=== PATIENT | female | born 1990 ===

== ENCOUNTER 2018-12-05 01:19 | Inpatient (IN) | payer MEDICAID ==
[2018-12-05 01:19] VITALS: BMI 20.9
--- NOTE | 2018-12-05 02:18 | ED PDOC ---
HPI: Psych/Substance Abuse Time Seen by Provider: 12/05/18 01:25 Chief Complaint (Nursing): Psychiatric Evaluation Chief Complaint (Provider): Depression History Per: Patient History/Exam Limitations: no limitations Suicide/Self Injury Attempted (Context): Cut Wrists Associated Symptoms: Depression, Suicidal Thoughts Additional Complaint(s): 28 y/o female presents to the ED with suicidal gesture. Patient used a kitchen knife and cut her wrists. Patient has a known history of 3 prior attempts of suicide. When provider asks if patient has a history of depression, patient denied. However, she does admit that 4 years ago she was admitted to the psychiatric unit 10 months after she gave . Patient reports she does currently see a psychiatrist, receive psychiatric care or take any medications. Past Medical History Reviewed: Historical Data, Nursing Documentation, Vital Signs Vital Signs: Last Vital Signs Temp 98.6 F 12/05/18 01:21 Pulse 98 H 12/05/18 01:21 Resp 16 12/05/18 01:21 BP 140/82 12/05/18 01:21 Pulse Ox 100 12/05/18 01:21 - Medical History PMH: Depression - Family History Family History: States: Unknown Family Hx - Social History Current smoker - smoking cessation education provided: No Alcohol: None Drugs: Denies - Immunization History Hx Tetanus Toxoid Vaccination: No (Last tetanus 4 years ago) Hx Influenza Vaccination: No Hx Pneumococcal Vaccination: No - Home Medications Home Medications: Ambulatory Orders Medication Instructions Recorded Escitalopram [Lexapro] 10 mg PO HS 30 Days #30 tab 12/09/18 - Allergies Allergies/Adverse Reactions: Allergies Allergy/AdvReac Type Severity Reaction Status Date / Time No Known Allergies Allergy Verified 12/28/17 09:35 Review of Systems ROS Statement: Except As Marked, All Systems Reviewed And Found Negative Psych: Positive for: Depression, Suicidal ideation Physical Exam - Reviewed Nursing Documentation Reviewed: Yes Vital Signs Reviewed: Yes - Physical Exam Appears: Positive for: Well, Non-toxic, No Acute Distress Head Exam: Positive for: ATRAUMATIC, NORMAL INSPECTION, NORMOCEPHALIC Skin: Positive for: Normal Color, Warm, DRY Eye Exam: Positive for: EOMI, Normal appearance, PERRL ENT: Positive for: Normal ENT Inspection Neck: Positive for: Normal, Painless ROM Cardiovascular/Chest: Positive for: Regular Rate, Rhythm. Negative for: Murmur Respiratory: Positive for: Normal Breath Sounds. Negative for: Respiratory Distress Gastrointestinal/Abdominal: Positive for: Normal Exam, Soft. Negative for: Tenderness Back: Positive for: Normal Inspection Extremity: Positive for: Normal ROM, Other (superficial abrasions to both wrists) Neurological/Psych: Positive for: Awake, Alert, Normal Tone - Laboratory Results Result Diagrams: 12/06/18 05:25 12/06/18 05:25 - ECG O2 Sat by Pulse Oximetry: 100 (RA) Pulse Ox Interpretation: Normal Medical Decision Making Medical Decision Making: Time: Impression: 28 y/o with self-injurious behavior Initial Plan: 1:1 Observation Crisis evaluation 05:26 Patient was evaluated by crisis and will be admitted. Patient is medically stable for psychiatric admission. Diagnosis is depression by Dr. Wiley. Scribe Attestation: Documented by Adriel Delgado, acting as a scribe Regla Rojas MD. Provider Scribe Attestation: All medical record entries made by the Scribe were at my direction and personally dictated by me. I have reviewed the chart and agree that the record accurately reflects my personal performance of the history, physical exam, medical decision making, and the department course for this patient. I have also personally directed, reviewed, and agree with the discharge instructions and disposition. Disposition - Clinical Impression Clinical Impression: Depression - Patient ED Disposition Is Patient to be Admitted: Yes - Disposition Disposition Time: 05:26 Condition: FAIR
[2018-12-05 03:21] LABS: BASO % 0.6 % (0.0-2.0); EOS # 0.1 K/uL (0.0-0.7); EOS % 0.9 % (0.0-4.0); HEMOGLOBIN 12.3 g/dL (12.0-16.0); LYMPH # 1.6 K/uL (1.0-4.3); LYMPH % 23.2 % (20.0-40.0); MEAN CELL VOLUME 95.9 fl (81.0-99.0); MEAN CORPUSCULAR HEMOGLOBIN 32.1 pg (27.0-31.0); MEAN CORPUSCULAR HGB CONC 33.4 g/dL (33.0-37.0); MEAN PLATELET VOLUME 10.6 fl (7.2-11.7); MONO # 0.5 K/uL (0.0-0.8); MONO % 7.2 % (0.0-10.0); NEUT # 4.7 K/uL (1.8-7.0); NEUT % 68.1 % (50.0-75.0); NRBC % 0.1 % (0.0-0.0); RBC 3.82 Mil/uL (3.80-5.20); RED CELL DISTRIBUTION WIDTH 12.4 % (11.5-14.5); WHITE BLOOD COUNT 6.9 K/uL (4.8-10.8)
[2018-12-05 03:31] LABS: ALBUMIN 3.7 g/dL (3.5-5.0); ALT/SGPT 20 U/L (9-52); AST/SGOT 22 U/L (14-36); BLOOD UREA NITROGEN 17 mg/dl (7-17); CALCIUM 8.9 mg/dL (8.4-10.2); GFR NON-AFRICAN AMERICAN > 60
[2018-12-05 03:49] LABS: SQUAMOUS EPITHIAL 1 /hpf (0-5); URINE BACTERIA RARE (<OCC); URINE BILIRUBIN NEGATIVE (NEGATIVE); URINE BLOOD LARGE (NEGATIVE); URINE CLARITY CLEAR (Clear); URINE COLOR STRAW (YELLOW); URINE GLUCOSE (UA) NEG (NEGATIVE); URINE LEUKOCYTE ESTERASE NEG Leu/uL (Negative); URINE PROTEIN NEGATIVE (NEGATIVE); URINE UROBILINOGEN 0.2-1.0 mg/dL (0.2-1.0)
[2018-12-05 03:58] LABS: BARBITURATES, UR NEGATIVE (NEGATIVE); BENZODIAZEPINES, UR NEGATIVE (NEGATIVE); OPIATES, UR NEGATIVE (NEGATIVE); PHENCYCLIDINE, UR NEGATIVE (NEGATIVE)
[2018-12-05] MEDS ORDERED: Magnesium Hydroxide Susp 30 ml UD PO PRN (06:21)
[2018-12-05] MEDS ORDERED: DiphenhydrAMINE 50 mg/ml Inj IM PRN (06:21)
[2018-12-05] MEDS ORDERED: Alum-Mag Hydrox-Simethicone Susp (30 mL) PO PRN (06:21)
--- NOTE | 2018-12-05 06:53 | PCM.BM ---
<ZacariasTeri Araseli - Last Filed: 12/05/18 06:51> Treatment Plan Problems - Problems identified on initial assessmt Self Harm Date Initiated: 12/05/18 Time Initiated: 06:51 Assessment reference: NA Status: Active Hopelessness/Helplessness Date Initiated: 12/05/18 Time Initiated: 06:51 Assessment reference: NA Status: Active Altered Sleep Patterns Date Initiated: 12/05/18 Time Initiated: 06:52 Assessment reference: NA Status: Active Treatment assets and liabiliti Patient Assests: cooperative, self-reliant, ADL independent, physically healthy, good support system Patient Liabilities: financial problems, relationship conflicts - Milieu Protocol Maintain good personal hygiene: daily Encourage regular showers, every shift Remind patient to perform daily oral care Conduct patient checks and document Observation sheet: Q15 minutes Maintain personal safety: every shift Educate patient to report safety concerns to staff, every shift Monitor environment for contraband/sharps Medication safety: Monitor for expected outcome, potential side effects: every shift, Assess barriers to learning: every shift, Assess readiness for medication education: every shift <Donta Lugo - Last Filed: 12/07/18 13:34> - Diagnosis (1) Major depression Status: Acute Interventions: start antidepressant , psychotherapy 12/07/18 13:34 <Negar Rogers - Last Filed: 12/08/18 14:25> Treatment assets and liabiliti Patient Assests: adapts well, cooperative, educated (Pt. 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 Pt. identifies daughter as primary protective factor. Pt. reports daily communication with mother ([place]). Pt. reports majority of family remains in [place], making staying in contact difficult. Pt. identified wanting to improve communication in order to feel better supported as a goal upon d/c. ), negotiates basic needs, cognitively intact Patient Liabilities: financial problems (Pt. currently financially dependent on boyfriend, adding to discord.), relationship conflicts (Pt. reports long hx of discord with boyfriend secondary to poor communication and lack of time spent at home. Pt. explains, the relationship has been over for a long time. ) Family Contact Family involvement: Family/SO is involved Family contact: Family has been contacted by patient, Patient declines to allow family contact at present - Outside Agency Agency 1 Care involvment: Information-sharing, Other Agency contact name: Robyn) Agency contact number: ([phone]) - Goals for Treatment Patient goals for treatment: Patient to continue stabilization on 3NP through medication management and group/supportive therapy to address sxs of depression (feelings of sadness, sleep disturbances, poor appetite) and eliminate SI. Patient to be encouraged to attend groups regularly to promote self-awareness, impulse control, and improve insight, compliance, coping skills and self-esteem. Patient to be provided with referral for appropriate level of aftercare to reduce risk of future hospitalizations and ensure safety in the community. Pt. identified prioritizing self-care by adhering with tx as primary tx goal in order to more effectively care for daughter and feel secure enough to end relationships. Discharge/Continuing Care - Education Needs Education Needs: Patient Medication, Patient Diagnosis/Disease Process, Patient Coping Skills, Patient Community resources, Patient Aftercare Safety Plan - Discharge Discharge Criteria: Tolerates medication w/o severe side effects, Free of Suicidal thoughts, Normal sleep pattern, Ability to care for self Discharge to:: Home, With Family - Treatment Team Participation Patient/Family/SO Statement: 12/08/18 14:23 Pt attended tx team on 12/07 to discuss progress on 3NP and tx goals. Affect brighter than upon admission. Pt. reported significant improvement in sxs of depression as exhibited by increase in energy/motivation and improved sleep/appetite. Pt. reported feeling more positive about the future. Pt. presented as future-oriented as exhibited by plans to start school on 12/13 to better financial situation and feel independent/secure enough to end current relationship if need be. Pt. expressed motivation for tx and agreed to referral to [facility] for OPS. Discussed with Family/SO: No Was Patient/Family/SO present at Treatment Team Meeting: Yes
[2018-12-05] MEDS ORDERED: Pneumococcal 23-Valent Vaccine IM ONE (07:00)
--- NOTE | 2018-12-05 07:49 | CARD ---
APPROVED REPORT Date of service: 12/05/2018 EKG Measurement Heart [id number] <Conclusion> Normal sinus rhythm Normal ECG
[2018-12-05 09:19] LABS: HDL CHOLESTEROL 56 MG/DL (30-70)
[2018-12-05 09:32] LABS: LDL CHOLESTEROL 76 mg/dL (0-129)
[2018-12-05 09:38] VITALS: RESP 18
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
[2018-12-06 06:06] LABS: BASO % 0.8 % (0.0-2.0); EOS # 0.1 K/uL (0.0-0.7); LYMPH # 2.1 K/uL (1.0-4.3); LYMPH % 37.3 % (20.0-40.0); MEAN CELL VOLUME 95.9 fl (81.0-99.0); MEAN CORPUSCULAR HEMOGLOBIN 31.8 pg (27.0-31.0); MEAN CORPUSCULAR HGB CONC 33.2 g/dL (33.0-37.0); MEAN PLATELET VOLUME 10.4 fl (7.2-11.7); MONO # 0.5 K/uL (0.0-0.8); MONO % 8.1 % (0.0-10.0); NEUT # 2.9 K/uL (1.8-7.0); NEUT % 51.8 % (50.0-75.0); NRBC % 0.1 % (0.0-0.0); RBC 4.08 Mil/uL (3.80-5.20); RED CELL DISTRIBUTION WIDTH 12.7 % (11.5-14.5); WHITE BLOOD COUNT 5.6 K/uL (4.8-10.8)
[2018-12-06 06:26] LABS: ALB/GLOB RATIO 1.1 (1.0-2.1); ALT/SGPT 22 U/L (9-52); AST/SGOT 21 U/L (14-36); BLOOD UREA NITROGEN 15 mg/dl (7-17); CALCIUM 8.9 mg/dL (8.4-10.2); GFR NON-AFRICAN AMERICAN > 60
--- NOTE | 2018-12-06 13:36 | PCM.PYCHPN ---
Psychiatric Progress Note - Psychiatric Progress Note Patient seen today, length of contact: pt evaluated discussed with team chart reviewed Patient Chief Complaint: I want to take care of my child Problems Identified/Issues Discussed: pt on evaluation, cooperative, partial eye contact , presenting with depressed mood and constricted affect, reporting feeling overwhelmed at home with lack of social support, discussed with patient importance of therapy as treatment plan, for developing healthy coping skills with life stress, also discussed the possible therapeutic effect of lexapro, pt in agreement to start medication, denied any current active thoughts of self harm on the unit, denied perceptual disturbances, pt encouraged to attend groups and to participate in treatment Medical Problems: hx of one hospitalization three years ago in [place] for similar suicide attempt DSM 5 Symptoms Update: major depression recurrent severe without psychotic features Medication Change: Yes (lexapro 10mg qhs ) Medical Record Reviewed: Yes Mental Status Examination - Cognitive Function Orientation: Person, Place, Situation Attention: WNL Concentration: WNL Association: WNL Decription of patient's judgement and insights: partial insight fair judgment - Mood Mood: Depressed, Anxious - Affect Affect: Constricted - Speech Speech: Soft - Formal Thought Process Formal Thought Process: Circumstantial Psychotic Thoughts and Behaviors: pt denied perceptual disturbances non elicited - Suicidal Ideation Suicidal Ideation: No - Homicidal Ideation Homicidal Ideation: No Goal/Treatment Plan - Goal/Treatment Plan Need for Continued Stay: Remain at risks for inpatient hospitalization, Severe depression anxiety, Discharge may exacerbated symptoms Progress Toward Problem(s) and Goals/Treatment Plan: lexapro 10mg qhs, CBT group and supportive therapy
--- NOTE | 2018-12-07 13:41 | PCM.PYCHPN ---
Psychiatric Progress Note - Psychiatric Progress Note Patient seen today, length of contact: pt evaluated discussed with team chart reviewed Patient Chief Complaint: I want to find a future for myself Problems Identified/Issues Discussed: pt evaluated with treatment team,improved eye contact and speech more productive, reported improved sleep, no side effects of lexapro, discussed with pt importance of starting therapy on discharge for learning better coping sk ills, pt able to verbalize her future goals and motivated to continue with treatment she denied any current active thoughts of self harm, denied perceptual disturbances Medical Problems: hx of one hospitalization three years ago in [place] for similar suicide attempt DSM 5 Symptoms Update: major depression recurrent severe without psychotic features Medication Change: No Medical Record Reviewed: Yes Mental Status Examination - Cognitive Function Orientation: Person, Place, Situation Attention: WNL Concentration: WNL Association: WNL Decription of patient's judgement and insights: partial insight fair judgment - Mood Mood: Depressed - Affect Affect: Constricted - Speech Speech: Soft - Formal Thought Process Formal Thought Process: Circumstantial Psychotic Thoughts and Behaviors: pt denied perceptual disturbances non elicited - Suicidal Ideation Suicidal Ideation: No - Homicidal Ideation Homicidal Ideation: No Goal/Treatment Plan - Goal/Treatment Plan Need for Continued Stay: Remain at risks for inpatient hospitalization, Severe depression anxiety, Discharge may exacerbated symptoms Progress Toward Problem(s) and Goals/Treatment Plan: lexapro 10mg qhs, CBT group and supportive therapy referral to outpatient therapy on discharge
--- NOTE | 2018-12-08 14:10 | PCM.PYCHPN ---
Psychiatric Progress Note - Psychiatric Progress Note Patient seen today, length of contact: pt evaluated discussed with team chart reviewed Patient Chief Complaint: I am feeling better Problems Identified/Issues Discussed: pt evaluated , reported better mood, presenting with brighter affect, improved sleep, no reported side effects of medications, attending groups, able to verbalize healthy coping skills with stress she denied any current active thoughts of self harm, denied perceptual disturbances Medical Problems: hx of one hospitalization three years ago in [place] for similar suicide attempt DSM 5 Symptoms Update: major depression recurrent Medication Change: No Medical Record Reviewed: Yes Mental Status Examination - Cognitive Function Orientation: Person, Place, Situation Attention: WNL Concentration: WNL Association: WNL Decription of patient's judgement and insights: partial insight fair judgment - Mood Mood: Depressed, Anxious - Affect Affect: Constricted - Speech Speech: Soft - Formal Thought Process Formal Thought Process: Circumstantial Psychotic Thoughts and Behaviors: pt denied perceptual disturbances non elicited - Suicidal Ideation Suicidal Ideation: No - Homicidal Ideation Homicidal Ideation: No Goal/Treatment Plan - Goal/Treatment Plan Need for Continued Stay: Remain at risks for inpatient hospitalization, Severe depression anxiety, Discharge may exacerbated symptoms Progress Toward Problem(s) and Goals/Treatment Plan: lexapro 10mg qhs, CBT group and supportive therapy referral to outpatient therapy on discharge
[2018-12-08 14:18] VITALS: BP 116/62; PULSE 71; TEMP 97.8
--- NOTE | 2018-12-09 09:08 | PCM.PYCHDC ---
Mental Status Examination - Mental Status Examination Orientation: Person, Place, Situation Memory: Intact Mood: Neutral Affect: Broad Speech: Appropriate Attention: WNL Concentration: WNL Association: WNL Fund of Knowledge: WNL Formal Thought Process: No Impairment Description of patient's judgement and insight: partial insight fair judgment Psychotic Thoughts and Behaviors: pt denied perceptual disturbances non elicited Suicidal Ideation: No Current Homicidal Ideation?: No Discharge Summary - Discharge Note Reason for Hospitalization: pt is a 28 ys old female with previous diagnosis of depression currently not in treatment brought to ER after suicidal attempt by cutting both wrists superficially pt reported she has been increasingly depressed for past few months as she has not been working which resulted in conflict with her , feeling overwhelmed by house work,no social support and having financial difficulties pt reported poor sleep with early insomnia, poor appetite with unspecified weight loss, low energy poor motivation episodes of crying , on day of evaluation she had fight with resulting in suicidal thoughts with attempt to cut her wrist on unit continues to report passive suicidal ideation without active plan on the unit, feeling hopeless, denied perceptual disturbances, denied substance use Consultations:: List each consultation separately and include: 1. Reason for request. 2. Findings. 3. Follow-up Summary of Hospital Course include:: 1. Description of specific treatment plan utilized for patients during their course of treatmen. 2. Summarize the time- course for resolution of acute symptoms and/or regressed behaviors. 3. Describe issues identified and worked on during hospitalization. 4. Describe medication utilized. 5. Describe medical problems identified and treated. 6. Reassessment of suicide risk Summary of Hospital Course: pt on admission , presented with depressed mood and affect, pt was started on lexpro,it was increased gradually to 10mg CBT group and supportive therapy provided, pt was compliant with treatment , no reported side effects pt was able to verbalize healthy coping skills with stress on discharge mental status was stable, pt denied any current suicidal or homicidal ideation, denied perceptual disturbances - Diagnosis (1) Major depression Current Visit: Yes Status: Acute - Final Diagnosis (DSM 5) Condition upon Discharge: STABLE DSM 5: major depression recurrent severe without psychotic features Disposition: HOME/ ROUTINE Follow-up Treatment Plan: [facility] outpatient Prescriptions/Medication Reconciliation: Escitalopram [Lexapro] 10 mg PO HS 30 Days #30 tab - Antipsychotic Medications Pt discharged on 2 or more routine antipsychotic medications: No
[2018-12-10 02:43] VITALS: O2SAT 100
== END 2018-12-09 14:45 | disposition home or self-care (01) | DRG 430 ==
LOC: H.ER 01:19 → H.ERHOLD 05:26 → H.PSYCH 06:09
PROVIDERS: ADMIT Psychiatry & Neurology Psychiatry; ATTEND Psychiatry & Neurology Psychiatry
PROC: GZ51ZZZ Individual Psychotherapy, Behavioral (ICD-10-PCS; 2018-12-06)
PROC: GZ56ZZZ Individual Psychotherapy, Supportive (ICD-10-PCS; 2018-12-06)
PROC: GZHZZZZ Group Psychotherapy (ICD-10-PCS; principal; 2018-12-07)
DX: F33.2 Major depressive disorder, recurrent severe without psychotic features (principal); Z59.9 Problem related to housing and economic circumstances, unspecified; Z91.5 Personal history of self-harm; G47.9 Sleep disorder, unspecified; S61.511A Laceration without foreign body of right wrist, initial encounter; S61.512A Laceration without foreign body of left wrist, initial encounter; X78.9XXA Intentional self-harm by unspecified sharp object, initial encounter